=== PATIENT | male | born 1960 | race Caucasian/White ===

== ENCOUNTER → 2023-05-30 06:41 | Outpatient (REF) | payer BC, SELFPAY | LOC: HWRAD 06:41 | PROVIDERS: ATTENDING PHYSICIAN Family Medicine | DX: R79.89 Other specified abnormal findings of blood chemistry (principal) | CPT/HCPCS: 76700 ==

== ENCOUNTER → 2023-08-10 08:27 | Outpatient (REF) | payer BC, SELFPAY | LOC: MRI 3T 08:27 | PROVIDERS: ATTENDING PHYSICIAN Family Medicine | DX: K76.9 Liver disease, unspecified (principal) | CPT/HCPCS: 74183; A9575 ==